=== PATIENT | female | born 1985 | race Caucasian/White ===

== ENCOUNTER 2018-03-04 11:44 | Emergency (ER) | payer BC ==
[~2018-03-04] VITALS: Ht 162.6 cm; Wt 61.4 kg
[~2018-03-04 11:44] MED LIST: AMOXICILLIN875 MG PO; CEFTIN 250250 MG/TAB PO; MACROBID 1100 MG/CAP PO; PRENATAL1 TA1 PO
[2018-03-04 11:49] VITALS: BP 132/85; TEMP 98.4
[2018-03-04 15:01] VITALS: PULSE 78
== END 2018-03-04 14:20 | disposition home or self-care (01) ==
LOC: COL.ER 11:44
DX: S52.502A Unspecified fracture of the lower end of left radius, initial encounter for closed fracture (principal); F17.210 Nicotine dependence, cigarettes, uncomplicated; Z90.89 Acquired absence of other organs; W19.XXXA Unspecified fall, initial encounter
CPT/HCPCS: Q4021

== ENCOUNTER 2018-05-19 01:53 | Observation (INO) | payer SELFPAY ==
[~2018-05-19] VITALS: Ht 162.6 cm; Wt 135.0 kg
[2018-05-19 03:07] LABS: BASO # 0.1 (0.0-0.2); BASO % 0.4 % (0.0-2.0); EOS % 0.1 % (0-4.0); GRAN # 13.9 (1.4-6.5); GRAN % 87.8 % (42.2-75.2); HEMATOCRIT 35.2 % (37.0-47.0); HEMOGLOBIN 11.6 g/dl (12.5-16.0); LYMPH # 1.2 (1.2-3.4); LYMPH % 7.8 % (20.0-51.0); MEAN CELL VOLUME 100 fl (80.0-100.0); MEAN CORPUSCULAR HEMOGLOBIN 33 pg (27.0-31.0); MEAN CORPUSCULAR HGB CONC 33 g/dl (33.0-37.0); MEAN PLATELET VOLUME 8.6 fl (7.4-10.4); MONO # 0.6 (0.1-0.6); MONO % 3.5 % (1.7-9.3); PLATELET COUNT 393 K/mm3 (130-400); RED BLOOD COUNT 3.51 M/mm3 (4.10-5.30)
[2018-05-19 03:16] LABS: ALBUMIN 3.9 gm/dL (3.5-5.0); BILIRUBIN,TOTAL 0.2 mg/dL (0.0-1.0); CALCIUM 7.9 mg/dL (8.4-10.2); CREATININE, serum 0.81 mg/dL (0.52-1.25); POTASSIUM 3.7 mmol/L (3.4-5.0); TOTAL PROTEIN 6.5 gm/dL (6.4-8.2)
[2018-05-19 04:53] VITALS: BP 118/68; PULSE 97; TEMP 98.2
[2018-05-19 07:30] VITALS: BP 108/63; PULSE 87; TEMP 98.7
[2018-05-19 12:08] VITALS: BP 106/61; PULSE 78; TEMP 99.1
[2018-05-19 15:13] VITALS: BP 106/65; PULSE 75; TEMP 98.5
[2018-05-19 20:10] VITALS: BP 108/59; PULSE 68; TEMP 98
[2018-05-19 23:31] VITALS: BP 118/74; PULSE 59; TEMP 98.4
[2018-05-20 03:52] VITALS: BP 120/65; PULSE 60; TEMP 98.1
[2018-05-20 07:37] VITALS: BP 116/63; PULSE 59; TEMP 97.9
[2018-05-20 11:51] VITALS: BP 119/72; PULSE 71; TEMP 98.1
[2018-05-20] MEDS ORDERED: TYLENOL 325MG325 MG PO (13:28)
== END 2018-05-20 14:15 | disposition home or self-care (01) ==
LOC: COL.ER 01:53 → SURG 03:20
PROVIDERS: Emergency Medicine
DX: J93.9 Pneumothorax, unspecified (principal); F10.129 Alcohol abuse with intoxication, unspecified; R40.2410 Glasgow coma scale score 13-15, unspecified time; W19.XXXA Unspecified fall, initial encounter
CPT/HCPCS: A9284; G0378; J2060; J2405; J3010; J7030; Q9967